=== PATIENT | male | born 1935 | race African-American/Black ===

== ENCOUNTER 2017-10-07 12:05 | Emergency (ER) | payer MEDICARE, OTHER ==
[~2017-10-07] VITALS: Ht 170.2 cm; Wt 74.4 kg
[~2017-10-07 12:05] MED LIST: HYDR25SU18 RC; METO-239 PO; SIMV10TA PO
[2017-10-07] MEDS ORDERED: IV NORMAL SALINE 1,000ML 1,000 ML IV ONE (12:15)
--- NOTE | 2017-10-07 12:25 | PHYS DOC ---
Past History Past Medical History: Hypertension Past Surgical History: No Surgical History Alcohol Use: None Drug Use: None Adult General Chief Complaint Chief Complaint: SYNCOPE HPI HPI 82-year-old male presents via EMS with near syncope. 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 He started to feel a bit sweaty so he sat down. He continued to feel warm and diaphoretic for least a few minutes. EMS was called. EMS arrived, the patient was diaphoretic and wide-eyed. He was not altered in mentation and was able to answer questions. On arrival to the ED the patient is aware of his surroundings but is having some trouble remembering the year. He is no longer diaphoretic. He denies any chest pain or shortness of breath. He states feeling generally well at this time. Review of Systems Review of Systems Constitutional: Denies fever or chills [] Eyes: Denies change in visual acuity, redness, or eye pain [] HENT: Denies nasal congestion or sore throat [] Respiratory: Denies cough or shortness of breath [] Cardiovascular: No additional information not addressed in HPI [] GI: Denies abdominal pain, nausea, vomiting, bloody stools or diarrhea [] : Denies dysuria or hematuria [] Musculoskeletal: Denies back pain or joint pain [] Integument: Denies rash or skin lesions [] Neurologic: Denies headache, focal weakness or sensory changes [] Endocrine: Denies polyuria or polydipsia [] All other systems were reviewed and found to be within normal limits, except as documented in this note. Current Medications Current Medications Current Medications Medications (Trade) Dose Ordered Sig/Lawrence Start Time Stop Time Status Last Admin Dose Admin Sodium Chloride 1,000 ml @ 1,000 mls/hr 1X ONCE 10/07/17 12:15 10/07/17 13:14 Allergies Allergies Allergies Coded Allergies Type Severity Reaction Last Updated Verified No Known Drug Allergies 10/25/14 No Physical Exam Physical Exam Constitutional: Well developed, well nourished, no acute distress, non-toxic appearance. [] HENT: Normocephalic, atraumatic, bilateral external ears normal, oropharynx moist, no oral exudates, nose normal. [] Eyes: PERRLA, EOMI, conjunctiva normal, no discharge. [] Neck: Normal range of motion, no tenderness, supple, no stridor. [] Cardiovascular:Heart rate regular rhythm, no murmur [] Lungs & Thorax: Bilateral breath sounds clear to auscultation [] Abdomen: Bowel sounds normal, soft, no tenderness, no masses, no pulsatile masses. [] Skin: Warm, dry, no erythema, no rash. [] Back: No tenderness, no CVA tenderness. [] Extremities: No tenderness, no cyanosis, no clubbing, ROM intact, no edema. [] Neurologic: Alert and oriented X 3, normal motor function, normal sensory function, no focal deficits noted. [] Psychologic: Affect normal, judgement normal, mood normal. [] EKG EKG Normal sinus rhythm, rate 54, PVC, no ST elevation or depression[] Radiology/Procedures Radiology/Procedures EXAM: Head CT without contrast. HISTORY: Syncope. TECHNIQUE: Computed tomographic images of the head were obtained without contrast. *One or more of the following individualized dose reduction techniques were utilized for this examination: 1. Automated exposure control. 2. Adjustment of the mA and/or kV according to patient size. 3. Use of iterative reconstruction technique. COMPARISON: None. FINDINGS: There is no acute or subacute extra-axial or intraparenchymal hemorrhage. There is no mass effect or midline shift. There is no hydrocephalus. There are areas of decreased attenuation within the cerebral white matter, nonspecific and likely related to chronic small vessel disease. 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 There is paranasal sinus mucosal thickening. The visualized portions the orbits and mastoid air cells are unremarkable. No calvarial lesion is seen. IMPRESSION: 1. No acute intracranial finding. 2. 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 Electronically signed by: Carole Reyes MD (10/07/2017 12:42 PM) [facility] [place]. HISTORY: Near syncope AP view was taken of the chest. Lungs are clear. Heart is normal in size without heart failure. There is no effusion. IMPRESSION: 1. No acute chest disease. Electronically signed by: Vin Thao MD (10/07/2017 12:45 PM) [facility] [] Course & Med Decision Making Course & Med Decision Making Pertinent Labs and Imaging studies reviewed. (See chart for details) Patient's head CT is negative for acute findings. He does have chronic small vessel disease as well as a chronic lacunar infarct in the caudate nucleus. Chest x-rays negative for acute findings. Labs are unremarkable. His troponin is negative. After talking more with the patient and his significant other this episode seems to be either an extended orthostatic hypotension or a transient hypoglycemia. Patient is completely baseline this time. He has had no chest pain or shortness of breath. The patient will be with his significant other who can monitor him and take care of him this evening and overnight. He gave the patient the option of starting the night in the hospital for observation versus going home and he would prefer to go home. They understand if any symptoms return that they will call paramedics immediately. He is stable for discharge at this time. [] Dragon Disclaimer Dragon Disclaimer This electronic medical record was generated, in whole or in part, using a voice recognition dictation system. Departure Departure: Referrals: JANETT MUSTAFA (PCP) ENZO GARCIA DO October 07, 2017 12:25
--- NOTE | 2017-10-07 12:45 | RAD ---
EXAM: Head CT without contrast. HISTORY: Syncope. TECHNIQUE: Computed tomographic images of the head were obtained without contrast. *One or more of the following individualized dose reduction techniques were utilized for this examination: 1. Automated exposure control. 2. Adjustment of the mA and/or kV according to patient size. 3. Use of iterative reconstruction technique. COMPARISON: None. FINDINGS: There is no acute or subacute extra-axial or intraparenchymal hemorrhage. There is no mass effect or midline shift. There is no hydrocephalus. There are areas of decreased attenuation within the cerebral white matter, nonspecific and likely related to chronic small vessel disease. 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 There is paranasal sinus mucosal thickening. The visualized portions the orbits and mastoid air cells are unremarkable. No calvarial lesion is seen. IMPRESSION: 1. No acute intracranial finding. 2. 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 Electronically signed by: Carole Reyes MD (10/07/2017 12:42 PM) [facility] [place]
--- NOTE | 2017-10-07 12:48 | RAD ---
AP chest. HISTORY: Near syncope AP view was taken of the chest. Lungs are clear. Heart is normal in size without heart failure. There is no effusion. IMPRESSION: 1. No acute chest disease. Electronically signed by: Vin Thao MD (10/07/2017 12:45 PM) [facility]
[2017-10-07 13:21] LABS: BASO # 0.1 x10^3/uL (0.0-0.2); BASO % 1 % (0-3); EOS # 0.1 x10^3/uL (0.0-0.7); EOS % 3 % (0-3); HEMATOCRIT 34.2 % (39.0-53.0); HEMOGLOBIN 11.5 g/dL (13.0-17.5); LYMPH # 0.8 x10^3/uL (1.0-4.8); LYMPH % 20 % (24-48); MEAN CORPUSCULAR HEMOGLOBIN 31 pg (25-35); MEAN CORPUSCULAR HGB CONC 34 g/dL (31-37); MEAN CORPUSCULAR VOLUME 93 fL (79-100); MONO # 0.3 x10^3/uL (0.0-1.1); MONO % 8 % (0-9); NEUT # 2.8 x10^3uL (1.8-7.7); NEUT % 67 % (31-73); PLATELET COUNT 243 x10^3/uL (140-400); RED BLOOD COUNT 3.68 x10^6/uL (4.30-5.70); RED CELL DISTRIBUTION WIDTH 14.5 % (11.5-14.5); WHITE BLOOD COUNT 4.2 x10^3/uL (4.0-11.0)
[2017-10-07 13:28] LABS: CALCIUM 8.6 mg/dL (8.5-10.1); CREATININE 1.1 mg/dL (0.7-1.3); GFR 77.7; POTASSIUM 4.3 mmol/L (3.5-5.1)
[2017-10-07 13:33] LABS: BILIRUBIN,URINE NEG (NEG); CLARITY,URINE CLEAR; COLOR,URINE YELLOW; GLUCOSE,URINE NEG (NEG)
[2017-10-07 13:34] LABS: BACTERIA,URINE 0 /HPF (0-FEW); HYALINE CASTS, URINE OCC /HPF; NITRITE,URINE NEG (NEG); RBC,URINE 0 /HPF (0-2); UROBILINOGEN,URINE 0.2 mg/dL (0.2 mg/dL)
[2017-10-07 14:06] VITALS: BP 128/72
--- NOTE | 2017-10-07 19:09 | EKG ---
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
== END 2017-10-07 14:11 | disposition home or self-care (01) ==
LOC: ER 12:05
DX: R55 Syncope and collapse (principal); I10 Essential (primary) hypertension
CPT/HCPCS: 36415; 70450; 71045; 80048; 81001; 84484; 85025; 93005; 96360; 99285-25; J7030

== ENCOUNTER 2018-01-23 16:15 | Emergency (ER) | payer MEDICARE, OTHER ==
[~2018-01-23] VITALS: Ht 170.2 cm; Wt 59.0 kg
--- NOTE | 2018-01-23 17:05 | RAD ---
CT head and cervical spine without contrast History: [facility] today Technique: Noncontrast CT imaging was performed of the head and cervical spine. Multiplanar reconstruction images are submitted. Exposure: One or more of the following individualized dose reduction techniques were utilized for this examination: 1. Automated exposure control 2. Adjustment of the mA and/or kV according to patient size 3. Use of iterative reconstruction technique. Head CT Comparison: January 25, 2009 Findings: There is motion degradation. No acute extra-axial or parenchymal hemorrhage is identified. There is no significant intra-axial mass effect, midline shift, or extra-axial fluid collection. The smith-white differentiation of the major vascular territories is preserved. Ventricular size is within normal limits. There is mild generalized supratentorial involutional change. The mastoid air cells and the visualized paranasal sinuses are aerated. There is no significant focal calvarial abnormality. There is atherosclerotic calcification of the intradural vertebral arteries and carotid siphons bilaterally. Impression: 1. No acute intracranial abnormality is identified. Cervical spine CT Comparison: January 25, 2009 Findings: No acute cervical spine fracture is identified. Vertebral body stature and AP alignment are within normal limits. Atlanto-axial distance is within normal limits. There is appropriate alignment of lateral masses of C1 relative to C2. Occipital condylar-C1 relationship is maintained. There is advanced degenerative disc disease C4-5 through C7-T1 and to lesser degree at C3-4. There is multilevel spondylosis. There is multilevel spinal stenosis, estimated about 6 to 7 mm C3-4 and to a somewhat lesser degree at C4-5 and C5-6. There is multilevel facet and uncovertebral degenerative change. There is moderate to severe neural foramina compromise bilaterally at C3-4, and C4-5 and left greater than right at C5-C6 and C6-7. There is some atherosclerotic calcification of the carotid arteries in the neck bilaterally. Impression: 1. No acute cervical spine fracture is identified. 2. There is multilevel advanced degenerative disc disease. There is multilevel spondylosis. There is multilevel spinal stenosis likely greatest at C3-4. There is multilevel facet and uncovertebral degenerative change resulting in multilevel cervical neural foramina compromise. Electronically signed by: aLwson Alicea MD (01/23/2018 5:03 PM) [facility]
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
[2018-01-23 17:35] VITALS: BP 143/78
== END 2018-01-23 17:35 | disposition home or self-care (01) ==
LOC: ER 16:15
DX: S00.91XA Abrasion of unspecified part of head, initial encounter (principal); M54.2 Cervicalgia; V49.9XXA Car occupant (driver) (passenger) injured in unspecified traffic accident, initial encounter; Y93.89 Activity, other specified; Y92.488 Other paved roadways as the place of occurrence of the external cause; Y99.8 Other external cause status
CPT/HCPCS: 70450; 72125; 99284

== ENCOUNTER 2018-12-17 11:33 | Emergency (ER) | payer MEDICARE, OTHER ==
[~2018-12-17] VITALS: Ht 167.6 cm; Wt 63.5 kg
[2018-12-17 11:57] VITALS: BP 149/92
[2018-12-17] MEDS ORDERED: MELO7.5T29 PO (12:07)
[2018-12-17] MEDS ORDERED: CYCL5TAB PO (12:07)
--- NOTE | 2018-12-17 12:07 | PHYS DOC ---
Past History Past Medical History: Cancer Past Surgical History: No Surgical History Smoking: Non-smoker Alcohol Use: None Drug Use: None Adult General Chief Complaint Chief Complaint: SHOUDLER HPI HPI Patient is a 83-year-old male presents with acute worsening of chronic left shoulder discomfort. This has been a long-standing issue but worse over the past 24 hours or so. Worse with movement of the left shoulder. He cannot point to any specific triggers such as increased use or a fall or any kind of trauma. He has taken no medicine for pain. He denies any worsening with exertion. Increased pain with movement. No new numbness or tingling in the extremity. No weakness. Denies any fever. Denies any shortness of breath. He attempted to get seen at the [facility] [place] but appointments were already filled.[] Review of Systems Review of Systems Constitutional: Denies fever or chills [] Eyes: Denies change in visual acuity, redness, or eye pain [] HENT: Denies nasal congestion or sore throat [] Respiratory: Denies cough or shortness of breath [] Cardiovascular: No chest pain or palpitations[] GI: Denies abdominal pain, nausea, vomiting, bloody stools or diarrhea [] : Denies dysuria or hematuria [] Musculoskeletal: Denies back pain, see history of present illness[] Integument: Denies rash or skin lesions [] Neurologic: Denies headache, focal weakness or sensory changes [] Endocrine: Denies polyuria or polydipsia [] All other systems were reviewed and found to be within normal limits, except as documented in this note. Allergies Allergies Allergies Coded Allergies Type Severity Reaction Last Updated Verified No Known Drug Allergies 10/25/14 No Physical Exam Physical Exam Constitutional: Well developed, well nourished, no acute distress, non-toxic appearance. [] HENT: Normocephalic, atraumatic, bilateral external ears normal, oropharynx moist, no oral exudates, nose normal. [] Eyes: PERRLA, EOMI, conjunctiva normal, no discharge. [] Neck: Normal range of motion, no tenderness, supple, no stridor. [] Cardiovascular:Heart rate regular rhythm, no murmur [] Lungs & Thorax: Bilateral breath sounds clear to auscultation, no thoracic tenderness to palpation. [] Abdomen: Bowel sounds normal, soft, no tenderness, no masses, no pulsatile masses. [] Skin: Warm, dry, no erythema, no rash. [] Back: No tenderness, no CVA tenderness. [] Extremities: Left shoulder has tenderness to palpation all along the trapezius which re-creates the pain. Patient has full active range of motion of the shoulder. No tenderness to palpation along the clavicle or any bony prominences. No pain with axial compression of the humerus. Patient is distally neurovascularly intact. A joint above and a joined below were evaluated and were normal. Patient does have full active range of motion. The other 3 extremities show: No tenderness, no cyanosis, no clubbing, ROM intact, no edema. [] Neurologic: Alert and oriented X 3, normal motor function, normal sensory function, no focal deficits noted. [] Psychologic: Affect normal, judgement normal, mood normal. [] EKG EKG [] Radiology/Procedures Radiology/Procedures [] Course & Med Decision Making Course & Med Decision Making Pertinent Labs and Imaging studies reviewed. (See chart for details) Medical decision making and ED course: Patient appears to have an acute on chronic pain of his left shoulder. This does not appear to be an acute coronary syndrome given that there is no worsening with exertion. No evidence of pneumonia, pneumothorax, or fracture based on exam and history. Discussed plan with patient who voiced understanding. All questions were answered. He was discharged in improved condition.[] Dragon Disclaimer Dragon Disclaimer This electronic medical record was generated, in whole or in part, using a voice recognition dictation system. Departure Departure: Impression: Primary Impression: Shoulder pain, left Disposition: HOME, SELF-CARE Condition: IMPROVED Referrals: JANETT MUSTAFA (PCP) Follow-up in 2 days Patient Instructions: Shoulder Exercises, Generic, SportsMed, Shoulder Pain Additional Instructions: Follow-up with your regular doctor in 2 days. Apply warm compresses to the affected area for 15 minutes at a time, at least 4 times a day. Return to the ER if worsening pain, difficulty breathing, or any other concerns Scripts Cyclobenzaprine Hcl (CYCLOBENZAPRINE HCL) 5 Mg Tablet 1 TAB PO TID for should pain, #30 TAB Prov: MIRIAN GOLDSTEIN DO 12/17/18 Meloxicam (MELOXICAM) 7.5 Mg Tablet 7.5 MG PO DAILY for PAIN, #20 TAB Prov: MIRIAN GOLDSTEIN DO 12/17/18 Problem Qualifiers Primary Impression: Shoulder pain, left Chronicity: acute Qualified Codes: M25.512 - Pain in left shoulder MIRIAN GOLDSTEIN DO Dec 17, 2018 12:07
== END 2018-12-17 12:11 | disposition home or self-care (01) ==
LOC: ER 11:33
DX: G89.29 Other chronic pain (principal); M25.512 Pain in left shoulder
CPT/HCPCS: 99283

== ENCOUNTER 2019-04-18 11:49 | Emergency (ER) | payer MEDICARE, OTHER ==
[~2019-04-18] VITALS: Ht 167.6 cm; Wt 64.0 kg
[~2019-04-18 11:49] MED LIST changes: +CYCL5TAB PO; +MELO7.5T29 PO
[2019-04-18 11:53] VITALS: BP 163/93
--- NOTE | 2019-04-18 12:00 | PHYS DOC ---
Past History Past Medical History: Cancer Past Surgical History: No Surgical History Smoking: Non-smoker Alcohol Use: None Drug Use: None Adult General Chief Complaint Chief Complaint: ALTERED MENTAL STATUS HPI HPI Patient is a 83 yo m mp pulled him over, he wasnt' answering questions approrpaitely so they called ems. Additional history obtained from both and the patient apparently the patient was waiting in line to get into [employer] the application security engineer waved the car in front of him on and he had been waiting there for a while so he thought that it was his turn to go as well. He then pulled over as soon as they asked him to he really was just trying to get a cup of coffee. 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 he never drives at night whenever they are together she will drive preferentially he has not been sick recently he has had memory issues for the last couple of years no past medical history no daily medications no recent trauma Review of Systems Review of Systems Constitutional: Denies fever or chills [] Eyes: Denies change in visual acuity, redness, or eye pain [] HENT: Denies nasal congestion or sore throat [] Respiratory: Denies cough or shortness of breath [] Cardiovascular: No additional information not addressed in HPI [] GI: Denies abdominal pain, nausea, vomiting, bloody stools or diarrhea [] : Denies dysuria or hematuria [] All other systems were reviewed and found to be within normal limits, except as documented in this note. Allergies Allergies Allergies Coded Allergies Type Severity Reaction Last Updated Verified No Known Drug Allergies 10/25/14 No Physical Exam Physical Exam Constitutional: Well developed, well nourished, no acute distress, non-toxic appearance. [] HENT: Normocephalic, atraumatic, bilateral external ears normal, oropharynx moist, no oral exudates, nose normal. [] Eyes: PERRLA, EOMI, conjunctiva normal, no discharge. [] Neck: Normal range of motion, no tenderness, supple, no stridor. [] Cardiovascular:Heart rate regular rhythm, no murmur [] Lungs & Thorax: Bilateral breath sounds clear to auscultation [] Abdomen: Bowel sounds normal, soft, no tenderness, no masses, no pulsatile masses. [] Skin: Warm, dry, no erythema, no rash. [] Back: No tenderness, no CVA tenderness. [] Extremities: No tenderness, no cyanosis, no clubbing, ROM intact, no edema. [] Neurologic: Alert and oriented X 2 does not know the year however gait is normal, normal motor function, normal sensory function, no focal deficits noted. [] Psychologic: Affect normal, judgement normal, mood normal. [] Current Patient Data Vital Signs Vital Signs Date Time Temp Pulse Resp B/P (MAP) Pulse Ox O2 Delivery O2 Flow Rate FiO2 04/18/19 11:53 98.0 52 18 99 Room Air Lab Results mperature (Fahrenheit): * 98.0 degrees F (97.6-99.5) Patient Temperature * 98.0 degrees F (97.5-99.5) Temperature Source * Oral Blood Pressure Systolic * 163 mm Hg (100-140) H Blood Pressure Diastolic * 93 mm Hg (60-100) Blood Pressure Mean * 116 mm Hg Blood Pressure Location * Right Arm Blood Pressure Source * Automatic Cuff Pulse Rate * 52 beats per minute (60-90) L Pulse Assessment Method * NIBP Respiratory Rate * 18 breaths per minute (12-24) Oxygen Delivery Method * Room Air Bedside Pulse Oximetry * 99 % EKG EKG [] Radiology/Procedures Radiology/Procedures [] Course & Med Decision Making Course & Med Decision Making Pertinent Labs and Imaging studies reviewed. 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 He gives a fairly logical although slightly misguided explanation for this. 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 They're agreeable to this plan labs look good overall. Return precautions discussed Dragon Disclaimer Dragon Disclaimer This electronic medical record was generated, in whole or in part, using a voice recognition dictation system. Departure Departure: Impression: Primary Impression: Dementia Disposition: 01 HOME, SELF-CARE Condition: STABLE Referrals: JANETT MUSTAFA (PCP) BIPIN PEDERSON MD Apr 18, 2019 12:00
[2019-04-18 12:36] LABS: BASO % 1 % (0-3); EOS % 2 % (0-3); HEMOGLOBIN 12.4 g/dL (13.0-17.5); LYMPH # 1.1 x10^3/uL (1.0-4.8); LYMPH % 37 % (24-48); MEAN CORPUSCULAR HEMOGLOBIN 32 pg (25-35); MEAN CORPUSCULAR HGB CONC 34 g/dL (31-37); MEAN CORPUSCULAR VOLUME 95 fL (79-100); MONO # 0.2 x10^3/uL (0.0-1.1); MONO % 9 % (0-9); NEUT # 1.4 x10^3uL (1.8-7.7); NEUT % 51 % (31-73); PLATELET COUNT 236 x10^3/uL (140-400); RED CELL DISTRIBUTION WIDTH 14.5 % (11.5-14.5); WHITE BLOOD COUNT 2.8 x10^3/uL (4.0-11.0)
[2019-04-18 12:50] LABS: BACTERIA,URINE 0 /HPF (0-FEW); BILIRUBIN,URINE NEG (NEG); CLARITY,URINE CLEAR; COLOR,URINE STRAW; GLUCOSE,URINE NEG (NEG); NITRITE,URINE NEG (NEG); RBC,URINE 0 /HPF (0-2); SQUAMOUS EPITHELIAL CELL,UR OCC /LPF; UROBILINOGEN,URINE 0.2 mg/dL (0.2 mg/dL); WBC,URINE 0 /HPF (0-4)
[2019-04-18 12:53] LABS: ALBUMIN 3.9 g/dL (3.4-5.0); ALBUMIN/GLOBULIN RATIO 1.2 (1.0-1.7); GFR 86.6; POTASSIUM 4.1 mmol/L (3.5-5.1); TOTAL BILIRUBIN 0.3 mg/dL (0.2-1.0); TOTAL PROTEIN 7.1 g/dL (6.4-8.2)
== END 2019-04-18 13:05 | disposition home or self-care (01) ==
LOC: ER 11:49
DX: F03.90 Unspecified dementia, unspecified severity, without behavioral disturbance, psychotic disturbance, mood disturbance, and anxiety (principal)
CPT/HCPCS: 36415; 80053; 81001; 85025; 99284